=== PATIENT | male | born 1980 | race Two or more races ===

== ENCOUNTER 2018-05-25 11:11 | Emergency (ER) | payer SELFPAY ==
[2018-05-25 11:26] VITALS: TEMP 99.3; BMI 32.5
[2018-05-25] MEDS ORDERED: KETOROLAC TROMETHAMINE 60 MG/2 ML VIAL IM ONE (11:51)
[2018-05-25] MEDS ORDERED: AMOX TR/POT CLAV 875MG/125MG TABLETS (FP) PO ONE (11:52)
[2018-05-25] MEDS ORDERED: KETOROLAC TROMETHAMINE 60 MG/2 ML VIAL ONE (11:53)
[2018-05-25] MEDS ORDERED: AMOX TR/POT CLAV 875MG/125MG TABLETS (FP) ONE (11:54)
--- NOTE | 2018-05-25 11:57 | PDOC ---
History of Present Illness - General Chief Complaint: Wound Stated Complaint: SWELLING RT SIDE OF FACE/2 DAYS Time Seen by Provider: 05/25/18 11:42 History Source: Patient, Primary Care Provider - History of Present Illness Initial Comments: 05/25/18 11:52 Patient with history of hypertension just side of blood pressure medication yesterday. Patient not sure medication name present with complain of three-day history of right lower tooth pain and swelling to right gum and cheek area. Denies fever, chills or body aches. Patient denies any other symptoms. Patient reported he went to a dentist this morning and did not take his insurance so he came to the emergency room Timing/Duration: other (3 days) Past History - Past Medical History Allergies/Adverse Reactions: Allergies Allergy/AdvReac Type Severity Reaction Status Date / Time No Known Allergies Allergy Verified 05/25/18 11:23 Home Medications: Ambulatory Orders Amox-Tr/K Cl [Augmentin - 875Mg Tablet] 1 tab PO BID #14 tablet 05/25/18 Ibuprofen 800 mg PO Q8H PRN #20 tablet 05/25/18 COPD: No - Suicide/Smoking/Psychosocial Hx Smoking History: Current some day smoker Number of Cigarettes Smoked Daily: 8 Information on smoking cessation initiated: No Hx Alcohol Use: No Drug/Substance Use Hx: No Review of Systems - Review of Systems Able to Perform ROS?: Yes Is the patient limited Serbian proficient: No Constitutional: No: Chills, Fever HEENTM: Yes: Dental Problems (right lower teeth), Other (swelling to right side of gum and face around tooth pain area). No: Eye Pain, Blurred Vision, Tearing , Recent change in vision, Double Vision, Cataracts, Ear Pain, Ocular Prothesis , Ear Discharge, Nose Pain, Nose Congestion, Tinnitus, Nose Bleeding, Hearing Loss, Throat Pain, Throat Swelling, Mouth Pain, Difficulty Swallowing, Mouth Swelling Cardiac (ROS): No: Symptoms Reported ABD/GI: No: Symptoms Reported Musculoskeletal: No: Symptoms Reported Neurological: No: Headache All Other Systems: Reviewed and Negative *Physical Exam - Vital Signs Last Vital Signs Temp Pulse Resp BP Pulse Ox 99.3 F 118 H 16 154/112 H 100 05/25/18 11:23 05/25/18 11:23 05/25/18 11:23 05/25/18 11:23 05/25/18 11:23 - Physical Exam Comments: 05/25/18 11:55 GENERAL: Well developed, well nourished. Awake and alert. No acute distress. HEENT: Multiple teeth decay and right lower premolars with mild swelling to periodontal area around decays. No evidence of gum abscess on exam. Normocephalic, atraumatic. PERRLA, EOMI. No conjunctival pallor. Sclera are non- icteric. Moist mucous membranes. NECK: Supple. Full ROM. No JVD. Carotid pulses 2+ and symmetric, without bruits. No thyromegaly. No lymphadenopathy. CARDIOVASCULAR: Regular rate and rhythm. No murmurs, rubs, or gallops. Distal pulses are 2+ and symmetric. PULMONARY: No evidence of respiratory distress. Lungs clear to auscultation bilaterally. No wheezing, rales or rhonchi. ABDOMINAL: Soft. Non-tender. Non-distended. No rebound or guarding. No organomegaly. Normoactive bowel sounds. SKIN: Mild swelling to right side of cheek. No erythema to skin. Warm and dry. Normal capillary refill. No rashes. No jaundice. NEUROLOGICAL: Alert, awake, appropriate. Gait is normal without ataxia. PSYCHIATRIC: Cooperative. Good eye contact. Appropriate mood and affect. General Appearance: Yes: Nourished, Appropriately Dressed, Mild Distress Medical Decision Making - Medical Decision Making 05/25/18 11:57 Patient with history of hypertension presenting with complain of three-day history of pain and swelling to right side of teeth and gum. Patient coming to emergency room because outpatient dental clinic does not take his insurance. Patient with no fever or chills. Exam significant for moderate tenderness to right lower premolars with multiple teeth decays. Patient afebrile and stable for outpatient treatment with dental follow-up. Toradol 60 mg IM given for pain and Augmentin 875 mg by mouth for infection. *DC/Admit/Observation/Transfer Diagnosis at time of Disposition: Acute periodontitis - Discharge Dispostion Disposition: HOME Condition at time of disposition: Stable Decision to Admit order: No - Prescriptions Prescriptions: Amox-Tr/K Cl [Augmentin - 875Mg Tablet] 1 tab PO BID #14 tablet Ibuprofen 800 mg PO Q8H PRN #20 tablet PRN Reason: tooth pain - Referrals Referrals: Gal Higgins DDS [Staff Physician] - - Patient Instructions Printed Discharge Instructions: DI for Dental Pain, Tooth Decay Additional Instructions: Take medication as prescribed. Report with referred dentist as soon as possible. if no availabl appointment immediately, you can go to Dental urgent care [address] [place] [id number] or call insurance for dental office that takes your insurance - Post Discharge Activity
[2018-05-25 12:17] VITALS: BP 146/95; PULSE 105
--- NOTE | 2018-05-25 12:34 | PDOC ---
*Physical Exam - Vital Signs Last Vital Signs Temp Pulse Resp BP Pulse Ox 99.3 F 105 H 18 146/95 99 05/25/18 11:23 05/25/18 12:15 05/25/18 12:15 05/25/18 12:15 05/25/18 12:15 - Physical Exam Comments: 05/25/18 12:31 Vital signs as noted, afebrile. Initially hypertensive and tachycardic secondary to pain, improves with rest. Mild soft tissue swelling along the right mandible, dentition intact but tender to palpation along the tooth 30 and 31 without palpable or visible abscess. Oropharynx clear, no uvular deviation, no stridor, no tenderness or crepitus along the floor of the mouth. Voice is clear. Neck is supple, cardiopulmonary exam is normal ED Treatment Course - Medications Given in the ED: ED Medications Discontinued Medications Generic Name Dose Route Start Last Admin Trade Name Freq PRN Reason Stop Dose Admin Amoxicillin/Clavulanate Potassium 1 tab 05/25/18 11:52 05/25/18 11:58 Augmentin - 875mg Tablet PO 05/25/18 11:53 1 tab ONCE ONE Administration Ketorolac Tromethamine 60 mg 05/25/18 11:51 05/25/18 11:58 Toradol Injection - IM 05/25/18 11:52 60 mg ONCE ONE Administration Medical Decision Making - Medical Decision Making 05/25/18 12:33 37-year-old male with recently diagnosed hypertension yesterday by his PCP started on the medication but has not filled the prescription yet presents here with right facial swelling and dental pain for 2 days. Presentation consistent with dental infection without airway involvement, well-appearing. Hypertensive and tachycardic initially, resolved spontaneously, encouraged to fill the previously prescribed prescription and begin his medications. Dental referral We'll start antibiotics and pain medications Understands strict return criteria *DC/Admit/Observation/Transfer Diagnosis at time of Disposition: Acute periodontitis - Discharge Dispostion Disposition: HOME Condition at time of disposition: Stable - Prescriptions Prescriptions: Amox-Tr/K Cl [Augmentin - 875Mg Tablet] 1 tab PO BID #14 tablet Ibuprofen 800 mg PO Q8H PRN #20 tablet PRN Reason: tooth pain - Referrals Referrals: Gal Higgins DDS [Staff Physician] - - Patient Instructions Printed Discharge Instructions: Tooth Decay, DI for Dental Pain Additional Instructions: Take medication as prescribed. Report with referred dentist as soon as possible. if no availabl appointment immediately, you can go to Dental urgent care [address] [place] [address] or call insurance for dental office that takes your insurance - Post Discharge Activity
== END 2018-05-25 12:22 | disposition home or self-care (01) ==
LOC: JER 11:11
PROC: 3E0233Z Introduction of Anti-inflammatory into Muscle, Percutaneous Approach (ICD-10-PCS; principal; 2018-05-25)
DX: K05.20 Aggressive periodontitis, unspecified (principal)
CPT/HCPCS: 99281-25

== ENCOUNTER 2022-06-12 04:06 | Day surgery (SDC) | payer OTHER ==
[2022-06-11 09:11] VITALS: BMI 34.4
[2022-06-12] MEDS ORDERED: MIDAZOLAM HCL 2 MG/2 ML SINGLE DOSE VIAL ONE (14:19)
[2022-06-12] MEDS ORDERED: LIDOCAINE HCL 2% JELLY 10 ML CARTRIDGE ONE (14:23)
[2022-06-12] MEDS ORDERED: ceFAZolin SODIUM 1 GM VIAL IVPB ONE (14:26)
[2022-06-12] MEDS ORDERED: PROPOFOL 80 ML ONE (14:42)
[2022-06-12] MEDS ORDERED: LIDOCAINE HCL 2% JELLY 10 ML CARTRIDGE TP ONE (14:42)
[2022-06-12] MEDS ORDERED: ONDANSETRON 4 MG/2 ML VIAL IVPUSH PRN (15:20)
[2022-06-12 18:03] VITALS: PULSE 79
[2022-06-12 19:24] VITALS: BP 124/88; RESP 20; TEMP 97.2
[2022-06-19 17:06] LABS: CA OXALATE MONOHYDR. 60 % (.); SIZE 6x4 mm (.); WEIGHT 172 mg (.)
== END 2022-06-12 18:08 | disposition home or self-care (01) ==
LOC: JASU-SURG 04:06
PROVIDERS: ATTEND Urology
PROC: 0TCB8ZZ Extirpation of Matter from Bladder, Via Natural or Artificial Opening Endoscopic (ICD-10-PCS; principal; 2022-06-12 14:00)
PROC: 0T7D8ZZ Dilation of Urethra, Via Natural or Artificial Opening Endoscopic (ICD-10-PCS; 2022-06-12 14:00)
DX: N21.0 Calculus in bladder (principal); N21.1 Calculus in urethra; N35.819 Other urethral stricture, male, unspecified site
CPT/HCPCS: 36415; 82360; 88300-TC; 94760

== ENCOUNTER 2023-10-31 01:16 | Inpatient (IN) | payer OTHER ==
[2023-10-31 01:30] VITALS: BMI 34.4
[2023-10-31] MEDS ORDERED: LIDOCAINE 4% PATCH TP ONE (02:33)
[2023-10-31] MEDS ORDERED: KETOROLAC TROMETHAMINE 60 MG/2 ML VIAL ONE (02:33)
[2023-10-31] MEDS ORDERED: diazePAM 5 MG TABLET ONE (02:33)
[2023-10-31] MEDS: LIDOCAINE 5% TOPICAL PATCH TP ONE (02:51)
[2023-10-31] MEDS: diazePAM 5 MG TABLET PO ONE (02:51)
[2023-10-31] MEDS: KETOROLAC TROMETHAMINE 60 MG/2 ML VIAL IM ONE (02:51)
[2023-10-31 03:04] LABS: BASO % 0.6 % (0-2.0); EOS % 1.2 % (0-4.5); HEMATOCRIT 58.7 % (35.4-49); HEMOGLOBIN 19.9 GM/dL (11.7-16.9); LYMPH % 22.8 % (8-40); MCH 29.5 pg (25.7-33.7); MCHC 33.9 g/dl (32.0-35.9); MEAN CELL VOLUME 87.1 fl (80-96); MEAN PLT VOLUME 8.9 fl (7.5-11.1); MONO % 4.5 % (3.8-10.2); NEUT % 70.9 % (42.8-82.8); PLATELET COUNT 154 10^3/uL (134-434); RBC 6.74 M/mm3 (4.00-5.60); WHITE BLOOD COUNT 10.2 K/mm3 (4.0-10.0)
[2023-10-31 03:20] LABS: POTASSIUM 4.9 mmol/L (3.5-5.1)
[2023-10-31 03:22] LABS: CALCIUM 8.8 mg/dL (8.5-10.1)
[2023-10-31 03:23] LABS: ALBUMIN 3.9 g/dl (3.4-5.0)
[2023-10-31 03:26] LABS: CREATININE 1.2 mg/dL (0.55-1.3)
[2023-10-31 03:27] LABS: BILIRUBIN,TOTAL 0.7 mg/dL (0.2-1); TOT PROT 7.4 g/dl (6.4-8.2)
[2023-10-31] MEDS ORDERED: METHOCARBAMOL 750 MG TABLET PO PRN (05:24)
[2023-10-31 05:55] LABS: PHOSPHOROUS 3.4 mg/dL (2.5-4.9)
[2023-10-31] MEDS: DOCUSATE SODIUM 100 MG CAPSULE (FP) PO SCH (06:12)
[2023-10-31] MEDS ORDERED: THROMBIN (BOVINE) 5,000 UNIT VIAL TP ONE (15:38)
[2023-10-31 16:49] LABS: INR 1.14 (0.83-1.09); PROTHROMBIN TIME (PATIENT) 13.2 SEC (9.7-13.0)
[2023-10-31 16:52] LABS: ACTIVATED PTT 37.2 SECONDS (25.2-36.5)
[2023-10-31] MEDS: ACETAMINOPHEN 1000 MG/100 ML BAG IVPB PRN (21:33)
[2023-10-31] MEDS: METHOCARBAMOL 500 MG TABLET PO PRN (21:33)
[2023-10-31] MEDS: DEXTROSE 5%-LACTATED RINGERS 1,000 ML IV SCH (22:47)
[2023-11-01] MEDS: LIDOCAINE PATCH REMOVAL MC SCH (05:22)
[2023-11-01 09:12] LABS: POTASSIUM 4.2 mmol/L (3.5-5.1)
[2023-11-01 09:18] LABS: ALBUMIN 3.6 g/dl (3.4-5.0)
[2023-11-01 09:19] LABS: BLOOD UREA NITROGEN 15.4 mg/dL (7-18)
[2023-11-01 09:22] LABS: CREATININE 1.1 mg/dL (0.55-1.3)
[2023-11-01 09:23] LABS: TOT PROT 6.9 g/dl (6.4-8.2)
[2023-11-01] MEDS: amLODIPine BESYLATE 5 MG TABLET (FP) PO SCH (09:27)
[2023-11-01 09:45] LABS: BASO % 0.5 % (0-2.0); EOS % 2.5 % (0-4.5); HEMATOCRIT 55.4 % (35.4-49); HEMOGLOBIN 18.8 GM/dL (11.7-16.9); MCH 29.6 pg (25.7-33.7); MEAN CELL VOLUME 87.1 fl (80-96); MEAN PLT VOLUME 9.3 fl (7.5-11.1); MONO % 6.8 % (3.8-10.2); NEUT % 51.2 % (42.8-82.8); PLATELET COUNT 146 10^3/uL (134-434); RBC 6.36 M/mm3 (4.00-5.60); RDW 13.8 % (11.9-15.9); WHITE BLOOD COUNT 8.5 K/mm3 (4.0-10.0)
[2023-11-01] MEDS: SODIUM CHLORIDE 1,000 ML IV STA (11:35)
[2023-11-01 12:25] LABS: ANISOCYTOSIS 0; HELMET CELLS 0; HOWELL-JOLLY BODIES 0; MACROCYTOSIS 0; OVALOCYTE 0; ROULEAU 0; SICKELED CELLS 0; TARGET CELLS 0; TEAR DROP CELLS 0; TOXIC GRANULATION 0
[2023-11-01 16:04] LABS: BASO % 0.5 % (0-2.0); EOS % 2.4 % (0-4.5); HEMATOCRIT 52.2 % (35.4-49); LYMPH % 29.4 % (8-40); MCH 29.7 pg (25.7-33.7); MCHC 34.5 g/dl (32.0-35.9); MEAN CELL VOLUME 86.1 fl (80-96); MONO % 7.6 % (3.8-10.2); NEUT % 60.1 % (42.8-82.8); PLATELET COUNT 146 10^3/uL (134-434); RBC 6.06 M/mm3 (4.00-5.60); RDW 13.7 % (11.9-15.9); WHITE BLOOD COUNT 11.1 K/mm3 (4.0-10.0)
[2023-11-01] MEDS: oxyCODONE HCL 5 MG TABLET PO PRN (16:17)
[2023-11-01] MEDS: ACETAMINOPHEN 1000 MG/100 ML BAG IVPB PRN (19:32)
[2023-11-02] MEDS ORDERED: SODIUM CHLORIDE 0.9% P/F 10 ML VIAL IJ ONE ×2 (08:25→13:45)
[2023-11-02] MEDS ORDERED: ONDANSETRON 4 MG/2 ML VIAL ONE (08:25)
[2023-11-02] MEDS ORDERED: LIDOCAINE HCL/PF 2% SDV 5ML VIAL ONE ×2 (08:25→08:32)
[2023-11-02] MEDS ORDERED: ceFAZolin SODIUM 1 GM VIAL ONE ×2 (08:25→13:45)
[2023-11-02] MEDS ORDERED: DEXAMETHASONE SOD PHOSPHATE 4 MG/1 ML VIAL ONE ×2 (08:25→10:23)
[2023-11-02] MEDS ORDERED: PROPOFOL 40 ML ONE (08:26)
[2023-11-02] MEDS ORDERED: ROCURONIUM BROMIDE 50 MG/5 ML SYRINGE ONE ×4 (08:26→13:02)
[2023-11-02] MEDS ORDERED: GENTAMICIN SO4 80 MG/2 ML VIAL ONE ×2 (08:32→14:43)
[2023-11-02] MEDS ORDERED: BUPIVACAINE LIPOSOME/PF (EXPAREL) 266 MG/20 ML VIAL ONE (08:32)
[2023-11-02] MEDS ORDERED: LIDOCAINE 1%/EPI 1:100000 (20 ML MULTI DOSE VIAL) ONE (08:32)
[2023-11-02] MEDS ORDERED: THROMBIN (BOVINE) 5,000 UNIT VIAL TP ONE ×3 (08:32→13:42)
[2023-11-02] MEDS ORDERED: VANCOMYCIN 1,000 MG VIAL (RESTRICTED TO ID ONLY) ONE ×2 (08:32→11:33)
[2023-11-02] MEDS ORDERED: KETAMINE HCL 200 MG/20 ML VIAL ONE (08:42)
[2023-11-02] MEDS ORDERED: LIDOCAINE HCL 2% (20ML MULTI-DOSE VIAL) ONE ×2 (08:45→13:03)
[2023-11-02] MEDS ORDERED: ACETAMINOPHEN INJECTION 100 ML IVPB ONE (08:45)
[2023-11-02] MEDS ORDERED: MAGNESIUM SULF 50% (8.12 MEQ/2 ML-1 GM VIAL) ONE (08:54)
[2023-11-02] MEDS: ceFAZolin SODIUM 1 GM VIAL IVPB ONE ×3 (09:02→13:50)
[2023-11-02] MEDS: LIDOCAINE 1%/EPI 1:100000 (20 ML MULTI DOSE VIAL) IJ ONE ×2 (09:03→10:09)
[2023-11-02] MEDS: VANCOMYCIN 1 GM in D5W (PRE-DOCKED) 1,000 MG/250 ML (RESTRICTED TO ID ONLY IVPB ONE ×3 (09:03→15:12)
[2023-11-02] MEDS ORDERED: MIDAZOLAM HCL 2 MG/2 ML SINGLE DOSE VIAL ONE ×3 (09:15→14:31)
[2023-11-02 09:24] LABS: BASO % 0.5 % (0-2.0); EOS % 2.4 % (0-4.5); HEMATOCRIT 53.7 % (35.4-49); HEMOGLOBIN 18.2 GM/dL (11.7-16.9); LYMPH % 29.7 % (8-40); MCH 29.5 pg (25.7-33.7); MCHC 33.9 g/dl (32.0-35.9); MEAN PLT VOLUME 9.4 fl (7.5-11.1); MONO % 6.9 % (3.8-10.2); NEUT % 60.5 % (42.8-82.8); PLATELET COUNT 143 10^3/uL (134-434); RBC 6.17 M/mm3 (4.00-5.60); RDW 13.9 % (11.9-15.9); WHITE BLOOD COUNT 10.6 K/mm3 (4.0-10.0)
[2023-11-02 09:37] LABS: INR 1.11 (0.83-1.09); PROTHROMBIN TIME (PATIENT) 12.9 SEC (9.7-13.0)
[2023-11-02 09:40] LABS: ACTIVATED PTT 40.2 SECONDS (25.2-36.5)
[2023-11-02 09:57] LABS: POTASSIUM 4.1 mmol/L (3.5-5.1)
[2023-11-02 10:21] LABS: BLOOD UREA NITROGEN 19.1 mg/dL (7-18); CALCIUM 8.2 mg/dL (8.5-10.1)
[2023-11-02 10:22] LABS: ALBUMIN 3.4 g/dl (3.4-5.0)
[2023-11-02 10:24] LABS: PHOSPHOROUS 3.5 mg/dL (2.5-4.9)
[2023-11-02 10:26] LABS: BILIRUBIN,TOTAL 0.7 mg/dL (0.2-1); MAGNESIUM 2.2 mg/dL (1.8-2.4); TOT PROT 6.4 g/dl (6.4-8.2)
[2023-11-02] MEDS: THROMBIN (BOVINE) 20,000 UNIT VIAL TP ONE ×3 (10:55→13:49)
[2023-11-02] MEDS: GENTAMICIN SO4 80 MG/2 ML VIAL IVPB ONE ×3 (10:55→14:45)
[2023-11-02] MEDS: HYDROGEN PEROXIDE 473 ML PO ONE ×2 (10:57→11:30)
[2023-11-02] MEDS ORDERED: HYDROmorphone HCl 2 MG/ML VIAL ONE (11:17)
[2023-11-02] MEDS ORDERED: PHENYLEPHRINE HCL 10 MG/1 ML SINGLE DOSE VIAL ONE (11:33)
[2023-11-02] MEDS: ALBUMIN HUMAN 5% 500 ML IV SOLUTION IV ONE ×2 (12:51→13:34)
[2023-11-02] MEDS ORDERED: SODIUM CHLORIDE IV ONE ×2 (13:00→13:45)
[2023-11-02] MEDS ORDERED: ALBUMIN HUMAN 5% 500 ML IV SOLUTION IV ONE ×2 (13:00→13:45)
[2023-11-02] MEDS ORDERED: HETASTARCH IV ONE ×2 (13:00→13:45)
[2023-11-02] MEDS: BUPIVACAINE HCL/PF 0.5% (5MG/ML) 10 ML VIAL IJ ONE (15:12)
[2023-11-02] MEDS: BUPIVACAINE LIPOSOME/PF (EXPAREL) 266 MG/20 ML VIAL NR ONE (15:13)
[2023-11-02] MEDS ORDERED: PROPOFOL 20 ML ONE (15:51)
[2023-11-02] MEDS ORDERED: HYDROmorphone HCl 2 MG/ML VIAL IVPUSH PRN (16:59)
[2023-11-02] MEDS ORDERED: ONDANSETRON 4 MG/2 ML VIAL IVPUSH PRN (17:08)
[2023-11-02] MEDS ORDERED: METHOCARBAMOL 500 MG TABLET PO PRN (17:08)
[2023-11-02] MEDS ORDERED: LACTATED RINGERS SOLUTION 1,000 ML/1,000 ML INFUS.BAG IV SCH (17:08)
[2023-11-02] MEDS ORDERED: oxyCODONE HCL 5 MG TABLET PO PRN ×2 (17:08)
[2023-11-02] MEDS ORDERED: diphenhydrAMINE HCL 25 MG CAPSULE (FP) PO PRN (17:08)
[2023-11-02] MEDS: LACTATED RINGERS SOLUTION 1,000 ML IV SCH (17:30)
[2023-11-02 17:59] LABS: HEMATOCRIT 29.9 % (35.4-49); HEMOGLOBIN 10.4 GM/dL (11.7-16.9); MCH 30.2 pg (25.7-33.7); MCHC 34.8 g/dl (32.0-35.9); MEAN CELL VOLUME 86.7 fl (80-96); MEAN PLT VOLUME 8.7 fl (7.5-11.1); PLATELET COUNT 104 10^3/uL (134-434); RBC 3.44 M/mm3 (4.00-5.60); RDW 13.9 % (11.9-15.9); WHITE BLOOD COUNT 9.7 K/mm3 (4.0-10.0)
[2023-11-02] MEDS ORDERED: CEFAZOLIN 1 GM in DEXTROSE 5%-WATER - 50 ML IVPB SCH (18:00)
[2023-11-02] MEDS: HEPARIN NA (PORCINE) 5,000 UNITS/ML 1ML VIAL SQ SCH (18:08)
[2023-11-02 18:23] LABS: CHLORIDE 114 mmol/L (98-107); POTASSIUM 4.2 mmol/L (3.5-5.1); SODIUM 144 mmol/L (136-145)
[2023-11-02 18:28] LABS: ANION GAP 8 mmol/L (4-13); BLOOD UREA NITROGEN 20.1 mg/dL (7-18); CO2 22 mmol/L (21-32); GLUCOSE,RANDOM 145 mg/dL (74-106)
[2023-11-02 18:31] LABS: CREATININE 1.4 mg/dL (0.55-1.3)
[2023-11-02 18:44] LABS: CALCIUM 6.9 mg/dL (8.5-10.1)
[2023-11-02] MEDS: diazePAM CARPU-JECT 10 MG/2 ML DISP.SYRIN IVPUSH ONE (20:14)
[2023-11-02 21:46] LABS: CHLORIDE 112 mmol/L (98-107); POTASSIUM 4.4 mmol/L (3.5-5.1); SODIUM 144 mmol/L (136-145)
[2023-11-02 21:48] LABS: ALBUMIN 2.8 g/dl (3.4-5.0); ANION GAP 8 mmol/L (4-13); CO2 24 mmol/L (21-32)
[2023-11-02 21:49] LABS: GLUCOSE,RANDOM 139 mg/dL (74-106)
[2023-11-02 21:50] LABS: BLOOD UREA NITROGEN 19.2 mg/dL (7-18)
[2023-11-02 21:51] LABS: CREATININE 1.3 mg/dL (0.55-1.3); SGOT/AST 40 U/L (15-37)
[2023-11-02 21:52] LABS: BILIRUBIN,TOTAL 0.6 mg/dL (0.2-1)
[2023-11-02 21:53] LABS: SGPT/ALT 23 U/L (13-61); TOT PROT 4.6 g/dl (6.4-8.2)
[2023-11-02 21:54] LABS: ALK PHOS 26 U/L (45-117)
[2023-11-02] MEDS: DOCUSATE SODIUM 100 MG CAPSULE (FP) PO SCH (21:55)
[2023-11-02] MEDS: CEFAZOLIN 1 GM in DEXTROSE 5%-WATER - 50 ML IVPB SCH (21:55)
[2023-11-02 21:56] LABS: CALCIUM 6.9 mg/dL (8.5-10.1)
[2023-11-02] MEDS: LIDOCAINE PATCH REMOVAL MC SCH (22:11)
[2023-11-02] MEDS: morphine SULFATE 4 MG/ML VIAL IVPUSH PRN (23:48)
[2023-11-03] MEDS: CALCIUM GLUCONATE 10% - 1,000 MG/10 ML VIAL IVPUSH ONE (04:01)
[2023-11-03] MEDS: CHOLECALCIFEROL (VIT D3) 400 UNIT (10 MCG) TABLET PO ONE (05:40)
[2023-11-03 06:47] LABS: BASO % 0.1 % (0-2.0); HEMATOCRIT 27.5 % (35.4-49); HEMOGLOBIN 9.5 GM/dL (11.7-16.9); LYMPH % 13.9 % (8-40); MCH 30.1 pg (25.7-33.7); MCHC 34.5 g/dl (32.0-35.9); MEAN CELL VOLUME 87.3 fl (80-96); MEAN PLT VOLUME 9.3 fl (7.5-11.1); MONO % 6.3 % (3.8-10.2); NEUT % 79.7 % (42.8-82.8); PLATELET COUNT 103 10^3/uL (134-434); RBC 3.15 M/mm3 (4.00-5.60); RDW 13.4 % (11.9-15.9); WHITE BLOOD COUNT 11.9 K/mm3 (4.0-10.0)
[2023-11-03] MEDS: CALCIUM GLUC IN NACL, ISO-OSM 1 GM/50 ML BAG IVPB ONE (07:03)
[2023-11-03 07:10] LABS: POTASSIUM 3.9 mmol/L (3.5-5.1)
[2023-11-03 07:22] LABS: ALBUMIN 2.8 g/dl (3.4-5.0); BLOOD UREA NITROGEN 18.4 mg/dL (7-18); CALCIUM 7.6 mg/dL (8.5-10.1); MAGNESIUM 1.9 mg/dL (1.8-2.4)
[2023-11-03 07:25] LABS: CREATININE 0.9 mg/dL (0.55-1.3); PHOSPHOROUS 2.8 mg/dL (2.5-4.9)
[2023-11-03 07:26] LABS: BILIRUBIN,TOTAL 0.8 mg/dL (0.2-1); TOT PROT 4.6 g/dl (6.4-8.2)
[2023-11-03] MEDS: amLODIPine BESYLATE 5 MG TABLET (FP) PO SCH (09:36)
[2023-11-03] MEDS: FOLIC ACID 1 MG TABLET (FP) PO SCH (09:36)
[2023-11-03] MEDS ORDERED: CHOLECALCIFEROL (VIT D3) 400 UNIT (10 MCG) TABLET PO ONE (10:00)
[2023-11-03] MEDS ORDERED: CALCIUM CARBONATE SUSPENSION - 1250 MG/5 ML ML PO SCH (10:00)
[2023-11-03] MEDS: CALCIUM CARBONATE SUSPENSION - 1250 MG/5 ML ML PO SCH (12:29)
[2023-11-03] MEDS: GABAPENTIN 100 MG CAPSULE PO SCH (17:44)
[2023-11-03] MEDS: LACTATED RINGERS SOLUTION 1,000 ML IV SCH (18:53)
[2023-11-04] MEDS ORDERED: METHOCARBAMOL 750 MG TABLET PO PRN (00:24)
[2023-11-04 06:45] LABS: BASO % 0.3 % (0-2.0); HEMATOCRIT 28.1 % (35.4-49); HEMOGLOBIN 9.5 GM/dL (11.7-16.9); LYMPH % 23.8 % (8-40); MCH 29.8 pg (25.7-33.7); MCHC 33.9 g/dl (32.0-35.9); MEAN CELL VOLUME 87.7 fl (80-96); MEAN PLT VOLUME 9.4 fl (7.5-11.1); MONO % 9.4 % (3.8-10.2); NEUT % 66.5 % (42.8-82.8); PLATELET COUNT 116 10^3/uL (134-434); RDW 13.3 % (11.9-15.9); WHITE BLOOD COUNT 14.2 K/mm3 (4.0-10.0)
[2023-11-04 07:01] LABS: POTASSIUM 3.8 mmol/L (3.5-5.1)
[2023-11-04 07:03] LABS: BLOOD UREA NITROGEN 19.7 mg/dL (7-18); CALCIUM 7.5 mg/dL (8.5-10.1)
[2023-11-04] MEDS: LACTATED RINGERS SOLUTION 1,000 ML IV SCH (16:03)
[2023-11-04] MEDS: POLYETHYLENE GLYCOL (HEALTHYLAX) 3350 17 GM PACKET PO SCH (16:03)
[2023-11-04] MEDS: ACETAMINOPHEN 325 MG TABLET (FP) PO PRN (16:04)
[2023-11-04] MEDS ORDERED: PIPERACILLIN/TAZOB 4.5 GM 4.5 GM in DEXTROSE 5%-WATER 100 ML IVPB SCH (18:00)
[2023-11-04] MEDS: PIPERACILLIN/TAZOB 4.5 GM 4.5 GM in DEXTROSE 5%-WATER 100 ML IVPB SCH (18:14)
[2023-11-04 19:25] LABS: EPI CELLS 1 /uL (0-25.1); HYALINE CASTS 0 /uL (0-3.1); URINE APPEARANCE CLEAR; URINE BACTERIA 1 /uL (0-1359); URINE BILIRUBIN NEGATIVE (NEGATIVE); URINE COLOR YELLOW; URINE GLUCOSE (UA) NEGATIVE (NEGATIVE); URINE KETONE NEGATIVE (NEGATIVE); URINE LEUK ESTERASE NEGATIVE (NEGATIVE); URINE NITRITE NEGATIVE (NEGATIVE); URINE PROTEIN NEGATIVE (NEGATIVE); URINE RBC 16 /uL (0-23.9); URINE WBC 3 /uL (0-25.8)
[2023-11-05] MEDS ORDERED: ONDANSETRON 4 MG/2 ML VIAL IVPUSH PRN (01:37)
[2023-11-05] MEDS ORDERED: METHOCARBAMOL 750 MG TABLET PO PRN (01:37)
[2023-11-05] MEDS: ACETAMINOPHEN 325 MG TABLET (FP) PO PRN (03:06)
[2023-11-05] MEDS: HEPARIN NA (PORCINE) 5,000 UNITS/ML 1ML VIAL SQ SCH (05:27)
[2023-11-05] MEDS: GABAPENTIN 100 MG CAPSULE PO SCH (05:27)
[2023-11-05 09:26] LABS: BASO % 0.5 % (0-2.0); EOS % 0.3 % (0-4.5); HEMATOCRIT 26.4 % (35.4-49); LYMPH % 17.6 % (8-40); MCH 29.9 pg (25.7-33.7); MCHC 34.1 g/dl (32.0-35.9); MEAN CELL VOLUME 87.9 fl (80-96); MEAN PLT VOLUME 9.5 fl (7.5-11.1); MONO % 8.2 % (3.8-10.2); NEUT % 73.4 % (42.8-82.8); PLATELET COUNT 122 10^3/uL (134-434); RDW 13.3 % (11.9-15.9); WHITE BLOOD COUNT 14.4 K/mm3 (4.0-10.0)
[2023-11-05 09:45] LABS: POTASSIUM 3.6 mmol/L (3.5-5.1)
[2023-11-05 09:52] LABS: ALBUMIN 2.4 g/dl (3.4-5.0); BLOOD UREA NITROGEN 17.2 mg/dL (7-18); CALCIUM 7.2 mg/dL (8.5-10.1)
[2023-11-05] MEDS: POLYETHYLENE GLYCOL (HEALTHYLAX) 3350 17 GM PACKET PO SCH (09:52)
[2023-11-05] MEDS: amLODIPine BESYLATE 5 MG TABLET (FP) PO SCH (09:52)
[2023-11-05] MEDS: FOLIC ACID 1 MG TABLET (FP) PO SCH (09:52)
[2023-11-05 09:56] LABS: TOT PROT 4.9 g/dl (6.4-8.2)
[2023-11-05] MEDS: ACETAMINOPHEN 500 MG TABLET (FP) PO SCH (13:53)
[2023-11-05] MEDS: LIDOCAINE 4% PATCH TP SCH (13:53)
[2023-11-05] MEDS ORDERED: PIPERACILLIN/TAZOB 3.375 GM 3.375 GM in DEXTROSE 5%-WATER - 50 ML IVPB SCH (15:15)
[2023-11-05] MEDS: PIPERACILLIN/TAZOB 3.375 GM 3.375 GM in DEXTROSE 5%-WATER - 50 ML IVPB SCH (17:26)
[2023-11-05] MEDS ORDERED: LIDOCAINE PATCH REMOVAL MC SCH (22:00)
[2023-11-05] MEDS: DOCUSATE SODIUM 100 MG CAPSULE (FP) PO SCH (22:15)
[2023-11-05] MEDS: LIDOCAINE PATCH REMOVAL MC SCH (22:22)
[2023-11-05] MEDS: morphine SULFATE 4 MG/ML VIAL IVPUSH PRN (22:47)
[2023-11-06] MEDS ORDERED: PIPERACILLIN/TAZOBACTAM 3.375 GM VIAL IVPB ONE (01:26)
[2023-11-06 08:21] LABS: BASO % 0.4 % (0-2.0); EOS % 2.2 % (0-4.5); HEMATOCRIT 26.5 % (35.4-49); HEMOGLOBIN 9.2 GM/dL (11.7-16.9); LYMPH % 20.3 % (8-40); MCH 30.3 pg (25.7-33.7); MCHC 34.9 g/dl (32.0-35.9); MEAN CELL VOLUME 86.9 fl (80-96); NEUT % 71.1 % (42.8-82.8); PLATELET COUNT 168 10^3/uL (134-434); RBC 3.05 M/mm3 (4.00-5.60); RDW 13.4 % (11.9-15.9); WHITE BLOOD COUNT 9.9 K/mm3 (4.0-10.0)
[2023-11-06 09:12] LABS: POTASSIUM 4.4 mmol/L (3.5-5.1)
[2023-11-06 09:19] LABS: ALBUMIN 2.4 g/dl (3.4-5.0); BLOOD UREA NITROGEN 18.9 mg/dL (7-18); CALCIUM 7.6 mg/dL (8.5-10.1)
[2023-11-06 09:22] LABS: BILIRUBIN,TOTAL 0.5 mg/dL (0.2-1)
[2023-11-06] MEDS: oxyCODONE HCL 5 MG TABLET PO PRN (12:22)
[2023-11-07] MEDS: morphine SULFATE 4 MG/ML VIAL IVPUSH PRN (01:05)
[2023-11-07] MEDS ORDERED: traMADol HCL 50 MG TABLET PO PRN (08:23)
[2023-11-07 09:03] LABS: BASO % 0.4 % (0-2.0); EOS % 4.6 % (0-4.5); HEMATOCRIT 29.6 % (35.4-49); HEMOGLOBIN 10.1 GM/dL (11.7-16.9); LYMPH % 23.6 % (8-40); MCH 29.8 pg (25.7-33.7); MCHC 34.1 g/dl (32.0-35.9); MEAN CELL VOLUME 87.5 fl (80-96); MEAN PLT VOLUME 8.9 fl (7.5-11.1); MONO % 7.1 % (3.8-10.2); NEUT % 64.3 % (42.8-82.8); PLATELET COUNT 226 10^3/uL (134-434); RBC 3.39 M/mm3 (4.00-5.60); RDW 13.3 % (11.9-15.9); WHITE BLOOD COUNT 9.4 K/mm3 (4.0-10.0)
[2023-11-07 09:20] LABS: POTASSIUM 4.5 mmol/L (3.5-5.1)
[2023-11-07 09:28] LABS: ALBUMIN 2.5 g/dl (3.4-5.0); BLOOD UREA NITROGEN 15.1 mg/dL (7-18)
[2023-11-07 09:29] LABS: BILIRUBIN,TOTAL 0.4 mg/dL (0.2-1); TOT PROT 5.4 g/dl (6.4-8.2)
[2023-11-07 09:31] LABS: CALCIUM 8.1 mg/dL (8.5-10.1); CREATININE 0.9 mg/dL (0.55-1.3)
[2023-11-07 09:46] LABS: INR 1.17 (0.83-1.09); PROTHROMBIN TIME (PATIENT) 13.6 SEC (9.7-13.0)
[2023-11-07] MEDS: LIDOCAINE 4% PATCH TP SCH (10:06)
[2023-11-07 10:39] LABS: ACTIVATED PTT 34.4 SECONDS (25.2-36.5)
[2023-11-07] MEDS: SIMETHICONE 80 MG TAB.CHEW (FP) PO PRN (14:25)
[2023-11-07] MEDS: oxyCODONE HCL 5 MG TABLET PO PRN ×2 (20:42→23:27)
[2023-11-07] MEDS: POLYETHYLENE GLYCOL (HEALTHYLAX) 3350 17 GM PACKET PO SCH (21:57)
[2023-11-07] MEDS: LIDOCAINE PATCH REMOVAL MC SCH (21:58)
[2023-11-08] MEDS: PIPERACILLIN/TAZOB 3.375 GM 3.375 GM in DEXTROSE 5%-WATER - 50 ML IVPB SCH (03:38)
[2023-11-08] MEDS: LACTOBACILLUS ACIDOPHILUS 1 TABLET PO SCH (09:43)
[2023-11-08] MEDS: diphenhydrAMINE HCL 25 MG CAPSULE (FP) PO PRN (21:45)
[2023-11-09 08:39] LABS: HEMATOCRIT 30.7 % (35.4-49); HEMOGLOBIN 10.6 GM/dL (11.7-16.9); MCH 30.2 pg (25.7-33.7); MCHC 34.6 g/dl (32.0-35.9); MEAN CELL VOLUME 87.3 fl (80-96); MEAN PLT VOLUME 8.3 fl (7.5-11.1); PLATELET COUNT 283 10^3/uL (134-434); RBC 3.52 M/mm3 (4.00-5.60); RDW 13.7 % (11.9-15.9); WHITE BLOOD COUNT 10.3 K/mm3 (4.0-10.0)
[2023-11-09 08:41] LABS: INR 1.24 (0.83-1.09); PROTHROMBIN TIME (PATIENT) 14.3 SEC (9.7-13.0)
[2023-11-09 08:47] LABS: POTASSIUM 4.8 mmol/L (3.5-5.1)
[2023-11-09 08:49] LABS: CALCIUM 8.5 mg/dL (8.5-10.1); MAGNESIUM 2.4 mg/dL (1.8-2.4)
[2023-11-09 08:51] LABS: BLOOD UREA NITROGEN 17.2 mg/dL (7-18)
[2023-11-09 08:52] LABS: PHOSPHOROUS 3.8 mg/dL (2.5-4.9)
[2023-11-09 08:53] LABS: CREATININE 0.9 mg/dL (0.55-1.3)
[2023-11-09 18:32] VITALS: RESP 20
[2023-11-10 08:51] LABS: BASO % 0.5 % (0-2.0); EOS % 2.7 % (0-4.5); HEMATOCRIT 32.3 % (35.4-49); LYMPH % 27.6 % (8-40); MCH 29.6 pg (25.7-33.7); MEAN PLT VOLUME 8.3 fl (7.5-11.1); NEUT % 61.2 % (42.8-82.8); PLATELET COUNT 320 10^3/uL (134-434); RBC 3.71 M/mm3 (4.00-5.60); RDW 13.2 % (11.9-15.9); WHITE BLOOD COUNT 10.1 K/mm3 (4.0-10.0)
[2023-11-10 09:12] LABS: POTASSIUM 4.6 mmol/L (3.5-5.1)
[2023-11-10 09:18] LABS: CALCIUM 8.5 mg/dL (8.5-10.1)
[2023-11-10 09:19] LABS: ALBUMIN 2.8 g/dl (3.4-5.0); BLOOD UREA NITROGEN 20.7 mg/dL (7-18)
[2023-11-10 09:21] LABS: CREATININE 0.9 mg/dL (0.55-1.3)
[2023-11-10 09:22] LABS: BILIRUBIN,TOTAL 0.4 mg/dL (0.2-1); TOT PROT 6.1 g/dl (6.4-8.2)
[2023-11-10 10:32] LABS: URINE APPEARANCE CLEAR; URINE BILIRUBIN NEGATIVE (NEGATIVE); URINE COLOR YELLOW; URINE GLUCOSE (UA) NEGATIVE (NEGATIVE); URINE KETONE NEGATIVE (NEGATIVE); URINE LEUK ESTERASE NEGATIVE (NEGATIVE); URINE NITRITE NEGATIVE (NEGATIVE); URINE PROTEIN NEGATIVE (NEGATIVE)
[2023-11-11 20:12] VITALS: BP 131/77; PULSE 116; TEMP 98.7
== END 2023-11-12 03:00 | DRG 304 ==
LOC: JER 01:16 → JERBED 05:28 → OBSVTOIN 05:28 → J5S 08:57 → J4W 11-02 19:57 → J5S 11-04 19:57 → J6S 11-07 19:36
PROVIDERS: ADMIT Internal Medicine
PROC: 0RG6071 Fusion of Thoracic Vertebral Joint with Autologous Tissue Substitute, Posterior Approach, Posterior Column, Open Approach (ICD-10-PCS; 2023-11-02)
PROC: 0SG1071 Fusion of 2 or more Lumbar Vertebral Joints with Autologous Tissue Substitute, Posterior Approach, Posterior Column, Open Approach (ICD-10-PCS; 2023-11-02)
PROC: 0RBB0ZZ Excision of Thoracolumbar Vertebral Disc, Open Approach (ICD-10-PCS; 2023-11-02)
PROC: 00QT0ZZ Repair Spinal Meninges, Open Approach (ICD-10-PCS; 2023-11-02)
PROC: 00NY0ZZ Release Lumbar Spinal Cord, Open Approach (ICD-10-PCS; 2023-11-02)
PROC: 01N Peripheral Nervous System, Release (ICD-10-PCS; 2023-11-02)
PROC: 4A11X4G Monitoring of Peripheral Nervous Electrical Activity, Intraoperative, External Approach (ICD-10-PCS; 2023-11-02)
PROC: 0RGA071 Fusion of Thoracolumbar Vertebral Joint with Autologous Tissue Substitute, Posterior Approach, Posterior Column, Open Approach (ICD-10-PCS; principal; 2023-11-02 10:30)
DX: M47.15 Other spondylosis with myelopathy, thoracolumbar region (principal); M54.30 Sciatica, unspecified side; M47.16 Other spondylosis with myelopathy, lumbar region; G95.29 Other cord compression; M47.14 Other spondylosis with myelopathy, thoracic region; G97.41 Accidental puncture or laceration of dura during a procedure; G97.82 Other postprocedural complications and disorders of nervous system; I10 Essential (primary) hypertension; G89.29 Other chronic pain; R29.898 Other symptoms and signs involving the musculoskeletal system; M48.061 Spinal stenosis, lumbar region without neurogenic claudication; D45 Polycythemia vera; R26.2 Difficulty in walking, not elsewhere classified; R32 Unspecified urinary incontinence; N20.0 Calculus of kidney; D72.829 Elevated white blood cell count, unspecified
CPT/HCPCS: 0241U-QW; 36415; 71045-TC-FY; 72131-TC; 72146-TC; 72148-TC; 76000-TC-FY; 80048; 80053; 81003; 82308; 82550; 82553; 82962; 83735; 84100; 85025; 85027; 85610; 85651; 85730; 86140; 86850; 86900; 86901; 87040; 87086; 87635; 93005; 93010; 94760; 97116-GP; 97163-GP; 99285-25; C1713; C1889; J0131; J1644

== ENCOUNTER 2024-02-23 03:09 | Emergency (ER) | payer OTHER ==
[2024-02-23 03:31] VITALS: BMI 33.9
[2024-02-23] MEDS ORDERED: ACETAMINOPHEN 325 MG TABLET (FP) ONE (04:34)
[2024-02-23] MEDS: ACETAMINOPHEN 500 MG TABLET (FP) PO ONE (04:40)
[2024-02-23] MEDS: DOCUSATE NA 100 MG/10 ML UNIT-DOSE CUPS PO ONE (05:33)
[2024-02-23] MEDS: SODIUM PHOSPHATE/NA BIPHOS 133 ML ENEMA PR ONE (05:33)
[2024-02-23 06:16] VITALS: TEMP 98.3
[2024-02-23 06:19] LABS: BASO % 0.7 % (0-2.0); HEMATOCRIT 44.7 % (35.4-49); HEMOGLOBIN 14.8 GM/dL (11.7-16.9); LYMPH % 23.5 % (8-40); MCHC 33.1 g/dl (32.0-35.9); MEAN CELL VOLUME 75.6 fl (80-96); MEAN PLT VOLUME 8.9 fl (7.5-11.1); MONO % 6.9 % (3.8-10.2); NEUT % 67.9 % (42.8-82.8); PLATELET COUNT 212 10^3/uL (134-434); RBC 5.92 M/mm3 (4.00-5.60); RDW 19.1 % (11.9-15.9); WHITE BLOOD COUNT 14.4 K/mm3 (4.0-10.0)
[2024-02-23 06:34] LABS: POTASSIUM 3.8 mmol/L (3.5-5.1)
[2024-02-23 06:36] LABS: ALBUMIN 3.6 g/dl (3.4-5.0); BLOOD UREA NITROGEN 19.2 mg/dL (7-18); CALCIUM 8.7 mg/dL (8.5-10.1)
[2024-02-23 06:40] LABS: CREATININE 0.9 mg/dL (0.55-1.3)
[2024-02-23 06:41] LABS: BILIRUBIN,TOTAL 0.7 mg/dL (0.2-1); TOT PROT 7.1 g/dl (6.4-8.2)
[2024-02-23] MEDS ORDERED: DOCUSATE SODIUM 100 MG CAPSULE (FP) PO ONE (06:43)
[2024-02-23 07:06] LABS: ERYTHROCYTE SEDIMENTATION RATE 6 mm/hr (0-10)
[2024-02-23] MEDS ORDERED: CEFTRIAXONE 1 GM/50 ML BAG ONE (09:23)
[2024-02-23] MEDS: CEFTRIAXONE 1,000 MG in DEXTROSE 5%-WATER - 50 ML IVPB ONE (09:30)
[2024-02-23] MEDS: VANCOMYCIN PREMIX 1.75 GM 1,750 MG/350 ML PIGGYBACK IVPB ONE (10:42)
[2024-02-23 14:55] VITALS: BP 147/94; PULSE 93; RESP 18
[2024-02-23 16:20] LABS: EPI CELLS 2 /uL (0-25.1); HYALINE CASTS 0 /uL (0-3.1); PH,URINE 5.5 (5.0-8.0); URINE APPEARANCE CLOUDY; URINE BACTERIA 4512 /uL (0-1359); URINE BILIRUBIN NEGATIVE (NEGATIVE); URINE COLOR YELLOW; URINE GLUCOSE (UA) NEGATIVE (NEGATIVE); URINE KETONE NEGATIVE (NEGATIVE); URINE LEUK ESTERASE 2+ (NEGATIVE); URINE NITRITE NEGATIVE (NEGATIVE); URINE PROTEIN NEGATIVE (NEGATIVE); URINE RBC 42 /uL (0-23.9); URINE WBC 1033 /uL (0-25.8)
== END 2024-02-23 17:27 | disposition short-term general hospital (02) ==
LOC: JER 03:09
DX: R15.9 Full incontinence of feces (principal); M54.50 Low back pain, unspecified; R68.83 Chills (without fever); K62.89 Other specified diseases of anus and rectum; M54.6 Pain in thoracic spine; Z20.822 Contact with and (suspected) exposure to COVID-19
CPT/HCPCS: 0241U-QW; 36415; 80053; 81003; 85025; 85651; 86140; 87040; 87086; 87186; 99285-25; J3370